=== PATIENT | male | born 1950 | race Caucasian/White ===

== ENCOUNTER 2020-08-21 10:04 | Inpatient (IN) | payer OTHER, SELFPAY ==
[2020-08-21] VITALS (21 sets, daily range): BP systolic 98–135; BP diastolic 46–61; PULSE 60–74; RESP 11–18; TEMP 36.1–36.7; O2SAT 95–99; BMI 43.4
--- NOTE | 2020-08-21 09:59 | PC.NURSE ---
ems called STEMI in field. cath team notified. STEMI cancelled upon arrival.
--- NOTE | 2020-08-21 10:09 | ECG_ITS ---
Measurements Intervals Paden Rate: 70 P: 42 WV: 202 QRS: -8 QRSD: 106 T: 63 QT: 405 QTc: 437 Interpretive Statements SINUS RHYTHM ST ELEVATION IN ANTEROLAT/INF LEADS- PROBABLY EARLY REPOLARIZATION ABNORMALITY BASELINE ARTIFACT- II, III, AVR, AVF, V1, V3-V6 BORDERLINE ECG Electronically Signed On 08-21-2020 13:17:36 CDT by Jeremias Christianson D.O.
--- NOTE | 2020-08-21 10:20 | ED.GENADULT ---
HPI - General Adult General Chief complaint: Altered Mental Status Stated complaint: unresponsive Time Seen by Provider: 08/21/20 10:08 Source: patient, EMS and RN notes reviewed Mode of arrival: EMS Limitations: no limitations History of Present Illness HPI narrative: Patient is 70 years old white male brought to the emergency room by ambulance because of dizziness, almost fainted, while working at his backyard prior to arrival to the emergency room. History of chronic lower back pain, probably worse. Patient received 2 nitroglycerin by his at home prior to arrival, EKG on arrival showed ST elevation consistent with inferior lateral AL. STEMI was called. History of diabetes, hypertension, hyperlipidemia, 7 coronary stents last one was 2 years ago, patient on baby aspirin. Currently patient is asymptomatic except lower back pain. Related Data Home Medications Medication Instructions Recorded Confirmed aspirin 81 mg tablet,delayed 81 mg PO DAILY 12/26/19 06/11/20 release atenolol 50 mg tablet 50 mg PO BID tablet 12/26/19 06/11/20 atorvastatin 40 mg tablet 40 mg PO DAILY 12/26/19 06/11/20 furosemide 40 mg tablet 40 mg PO QAM 12/26/19 06/11/20 gabapentin 400 mg capsule 800 mg PO BID cap 12/26/19 06/11/20 isosorbide mononitrate 30 mg 30 mg PO DAILY 12/26/19 06/11/20 tablet,extended release 24 hr oxycodone-acetaminophen 7.5 mg-325 1 tablet PO Q6H PRN 12/26/19 06/11/20 mg tablet valsartan 80 mg tablet 80 mg PO DAILY 12/26/19 06/11/20 Allergies Allergy/AdvReac Type Severity Reaction Status Date / Time No Known Allergies Allergy Verified 12/26/19 13:59 Review of Systems Review of Systems: Narrative: CONSTITUTIONAL: Denies fever, chills, or sweats. EYES: Denies visual changes, redness, or discharge. ENT: Denies rhinorrhea, congestion, sore throat, or otalgia. CARDIOVASCULAR: Denies chest pain, palpitations, or edema. RESPIRATORY: Denies cough or dyspnea. GASTROINTESTINAL: Denies abdominal pain, nausea, vomiting, or diarrhea. GENITOURINARY: Denies dysuria or hematuria. SKIN: Denies rash or itching. MUSCULOSKELETAL: Denies back pain, joint pain, or myalgia. NEUROLOGIC: Denies headache, numbness, or weakness. PSYCHIATRIC: Denies anxiety or depression. [facility] Past Medical History Medical History Arthritis Back pain Cholecystectomy planned Congestive heart failure Obesity Osteoporosis Surgical History Surgical History H/O angioplasty H/O heart artery stent History of back surgery History of carpal tunnel release Family History Family History Other Arthritis Asthma COPD (chronic obstructive pulmonary disease) Congestive heart failure Diabetes mellitus Family history of arthritis Family history of blood dyscrasia Family history of gout Hypertension Osteoporosis Renal disease Social History Social History Smoking status: Former smoker Tobacco type: cigarettes Smoking end date: 02/20/15 Alcohol intake: current Exam Narrative: Exam Narrative: General appearance: Well-developed, well-nourished Skin: Normal color Head: Normocephalic, nontraumatic Eyes: Clear conjunctiva ENT: Oropharynx normal, ears normal, nose normal Neck: Supple, nontender Chest and respiratory: Airway patent, no respiratory distress, no accessory muscle use Heart: Regular rate/rhythm Abdomen: Soft, nontender, no organomegaly, quiet bowel sounds Vascular: Normal peripheral pulses, normal capillary refill. Musculoskeletal: Normal range of motion, nontender back Neurologic: Alert and oriented ?3, [employer] is normal as tested, no gross motor deficit
[2020-08-21 10:22] LABS: Basophils Percent Auto 0.4 % (0.2-1.2); Eosinophils Absolute Auto 0.3 K/mm3 (0-0.3); Eosinophils Percent Auto 3.1 % (0-4.4); Hematocrit 38.2 % (42.0-52.0); Hemoglobin 12.7 g/dL (14.0-18.0); Immature Granulocyte Absolute 0.14 K/mm3 (0.00-0.031); Immature Granulocyte Percent A 1.5 % (0-0.5); Lymphocytes Percent Auto 23.3 % (18.3-44.2); Mean Corpuscular HGB Conc 33.2 g/dl (32-36); Mean Corpuscular Hemoglobin 32.6 pg (26-34); Mean Corpuscular Volume 98.2 fl (80-100); Mean Platelet Volume 11.3 fl (7.4-10.4); Monocytes Absolute Auto 0.9 K/mm3 (0.1-0.6); Monocytes Percent Auto 9.2 % (2.6-8.5); Neutrophils Absolute Auto 5.9 K/mm3 (1.3-6.7); Neutrophils Percent Auto 62.5 % (45.5-73.1); Platelet Count Result 177 k/mm3 (150-375); Red Blood Count 3.89 M/mm3 (4.6-6.20); Red Cell Distribution Width 12.9 % (11.5-14.5); White Blood Count 9.5 K/mm3 (4.5-10.0)
--- NOTE | 2020-08-21 10:26 | PM.IMHP ---
H&P: HPI History of Present Illness Date/Time: 08/21/20 10:26 Chief Complaint: flushing, near syncopal event Narrative: this is a 70-year-old man unknown to was here at [facility] was brought in by the EMS with STEMI having been declared in the field. The ECG from the field was not felt to be diagnostic of acute UT however the ECG in the emergency room here was felt to be diagnostic by our ED physician. I came to the emergency room to see the patient briefly. He is not reporting any chest pain. This gentleman apparently has a history of significant coronary disease with previous coronary interventions the details of which are unknown to us as he gets his care at another hospital. Apparently this morning he was working in his home in his bathroom and he suddenly felt warm flushed and lightheaded and presyncopal. He called an ambulance and was brought here for evaluation. He is not reporting any chest pain. His ECG in my opinion shows a sinus mechanism with some nonspecific lateral ST elevation but it does not appear to be highly suggestive of an acute current of injury. Patient's past medical history is primarily remarkable for hypertension, control diabetes he states diabetic nephropathy and treated dyslipidemia. No laboratory data is available to review. He is being brought to the cardiac catheterization lab for emergency angiogram as STEMI has been declared. Review of Systems Review of Systems: ROS unobtainable: Yes unobtainable due to medical condition PMFSH Past Medical History Medical History Arthritis Back pain Cholecystectomy planned Congestive heart failure Obesity Osteoporosis Surgical History Surgical History H/O angioplasty H/O heart artery stent History of back surgery History of carpal tunnel release Family History Family History Other Arthritis Asthma COPD (chronic obstructive pulmonary disease) Congestive heart failure Diabetes mellitus Family history of arthritis Family history of blood dyscrasia Family history of gout Hypertension Osteoporosis Renal disease Social History Social History Smoking status: Former smoker Tobacco type: cigarettes Smoking end date: 02/20/15 Alcohol intake: current Meds Home Medications and Allergies Home Medications Medication Instructions Recorded Confirmed Type aspirin 81 mg tablet,delayed 81 mg PO DAILY 12/26/19 06/11/20 History release atenolol 50 mg tablet 50 mg PO BID tablet 12/26/19 06/11/20 History atorvastatin 40 mg tablet 40 mg PO DAILY 12/26/19 06/11/20 History furosemide 40 mg tablet 40 mg PO QAM 12/26/19 06/11/20 History gabapentin 400 mg capsule 800 mg PO BID cap 12/26/19 06/11/20 History isosorbide mononitrate 30 mg 30 mg PO DAILY 12/26/19 06/11/20 History tablet,extended release 24 hr oxycodone-acetaminophen 7.5 mg-325 1 tablet PO Q6H PRN 12/26/19 06/11/20 History mg tablet valsartan 80 mg tablet 80 mg PO DAILY 12/26/19 06/11/20 History insulin aspart U-100 100 unit/mL 20 unit SUBCUT TID 90 Days #54 ml 06/19/20 Rx (3 mL) subcutaneous pen insulin glargine 100 unit/mL (3 40 unit SUBCUT BID 90 Days #75 ml 06/29/20 Rx mL) subcutaneous pen Allergies Allergy/AdvReac Type Severity Reaction Status Date / Time No Known Allergies Allergy Verified 12/26/19 13:59 Vital Signs Vital Signs - 24 hr 08/21/20 10:00 08/21/20 10:08 08/21/20 10:15 Temperature 36.6 C Pulse Rate 67 67 70 Respiratory Rate 18 12 13 Blood Pressure 135/59 L Pulse Oximetry 98 99 95 Exam Const: Other: Relatively calm appearing morbidly obese man no apparent distress currently HENMT: Mouth: Yes dry mucous membranes Eyes: Sclera: sclerae normal Pupils: Equal, round and reactive pupils present Neck:
[2020-08-21 10:31] LABS: Prothrombin Time 13.4 Seconds (11.1-14.7)
[2020-08-21 10:34] LABS: Alanine Aminotransferase 47 U/L (4-50); Albumin Level 3.3 g/dL (3.5-5.1); Alkaline Phosphatase 65 U/L (38-126); Anion Gap 9 mmol/L (8-16); Aspartate Amino Transferase 35 U/L (17-59); Bilirubin,Total 0.5 mg/dL (0.2-1.3); Blood Urea Nitrogen 53 mg/dL (9-20); Calcium 8.1 mg/dL (8.4-10.2); Carbon Dioxide 23 mmol/L (22-30); Chloride 106 mmol/L (98-107); Cholesterol 95 mg/dL (0-200); Estimated CRCL calculation 43 ml/min; Estimated Glomerular Filt Rate 35; Glucose 178 mg/dL (75-110); HDL Direct 33 mg/dL; Potassium 4.8 mmol/L (3.4-5.0); Sodium 138 mmol/L (137-145); Triglycerides 99 mg/dL (<150)
[2020-08-21 10:45] LABS: LDL Cholesterol Direct 37 mg/dL
[2020-08-21 10:48] LABS: Troponin I 0.016 ng/mL (0.000-0.034)
--- NOTE | 2020-08-21 11:04 | WPDCARDPROC ---
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 While he was at home apparently he was working in his bathroom and suddenly became flushed diaphoretic and either had a brief syncopal episode or near syncopal episode. He is not having any chest pain. STEMI was declared in the field although I did not agree that the ECG in the field was indicative of acute DE. Upon arrival here STEMI was declared by the ED physician. My personal inspection of the ECG does not strictly agree with this opinion. Currently the patient is asymptomatic. He normally receives his medical care at [facility] in [place]. He has never been here at [facility] previously. Procedure Procedure performed:: Emergency coronary angiography left ventriculography Sedation/Medication given:: no sedation administered case start time 10:36 a.m. case end time 10:56 a.m. Access site:: right femoral artery Estimated blood loss:: 15-20 cc Procedure note:: patient was brought to the cardiac catheterization lab in the emergency setting described above. The femoral triangle was prepped draped in the usual fashion. Anesthesia was provided with 1% lidocaine infiltrated locally. Using the modified Seldinger technique I punctured the right femoral artery and placed a 5 Greek vascular sheath. After this I engaged and injected the left coronary artery using a standard 5 Greek FL4 catheter. After this I engaged the were and injected the right coronary artery using a standard 5 Greek JR4 catheter. The cineangiograms were then reviewed. A 5 Greek angled pigtail catheter was used to measure left-sided hemodynamics and to injected LV g in the 30 degree IQBAL projection. After this the case was terminated angiogram was done of the femoral artery through the sheath and it was determined the sheath will be removed with direct manual compression. Patient was taken to the ICU room 6. For post cath recovery. Plans will be made for transfer to a CABG capable hospital. Findings:: Hemodynamics: Central aortic pressure was 114 over 48. Left ventricle 114/5 end-diastolic pressure 18 . There is no significant transvalvular upon pullback across the aortic valve. Left ventricle: the LV is normal in size the inferior wall is [id number] hypodynamic the anterior wall contracts well. The global ejection fraction I would visually estimated to be 50%. The left main coronary artery is medium in caliber. There is distal stenosis in the left main that is somewhat eccentric. In the MONTSERRATIAN cranial and AP cranial view appears to be about 80% distal left main stenosis. Left anterior descending is a medium caliber artery with stents in proximal 1/3 of the artery. The distal left main disease described above extends into the ostium of the LAD the where there is about 80-90% ostial LAD stenosis. There is EDER 3 flow in the LAD. A diagonal branch of the LAD has mid 80-90% stenosis. The circumflex is a medium caliber artery giving rise to the marginal branches the trunk of the circumflex has at least 2 previously deployed stents which appear to be patent distally to this the circumflex marginal branches are very small in caliber the right coronary artery is a large caliber artery that is dominant to the posterior circulation there are least 2 previous stents in the right coronary proximally and in the midportion. Between these 2 stents there is a 99% stenosis. There was EDER 3 flow in the vessel. The RPDA and RPL branches appear to be relatively good-sized.
--- NOTE | 2020-08-21 11:21 | WPDCNINT ---
Assessment and Plan Assessment and plan (1) CAD (coronary artery disease), [place] coronary artery: Code(s): I25.10 - Atherosclerotic heart disease of [place] coronary artery without angina pectoris Status: Acute Assessment and Plan: Patient was a code STEMI and was taken emergently to cardiac catheterization lab for cardiac catheterization which showed 1. Severe coronary artery disease with significant distal left main stenosis extending into the ostium of the LAD with there is also high-grade stenosis. 2. 80-90% stenosis in the major diagonal branch of the LAD 3. patent stents in proximal, mid LAD as well as in the proximal mid circumflex. 4. Distal circumflex OM branches are patent but very small and diffusely attenuated 5. large dominant right coronary artery with 99% mid stenosis between 2 previously deployed stents 6. mild inferior hypokinesia but overall fairly good left ventricular systolic function as described above patient is being transferred to [facility] for CABG evaluation continue aspirin beta-savannah statin (2) Pre-syncope: Code(s): R55 - Syncope and collapse Status: Acute Assessment and Plan: Unknown etiology at this time although postural hypotension appears to be the most likely etiology considering history of diabetes and of similar but milder events in the past as provided by patient. patient was also Lasix which could lead to intravascular volume depletion. It appears the blood sugar was checked and was adequate at this time patient is add strict bed rest due to presence of sheath. will check orthostatics once sheath is removed ICU telemetry monitoring. currently in normal sinus rhythm serial troponin check TSH hold Lasix since patient is transferring to outside hospital for CABG will hold on doing further aggressive workup like echocardiogram as likely be done at the other hospital in preparation of CABG (3) Diabetes mellitus: Code(s): E11.9 - Type 2 diabetes mellitus without complications Status: Acute Assessment and Plan: continue Lantus, with meal insulin and sliding scale (4) CKD (chronic kidney disease): Code(s): N18.9 - Chronic kidney disease, unspecified Status: Acute Assessment and Plan: baseline creatinine unknown. since patient has received IV contrast, will continue IV fluids at this time. hold ARB monitor urine output and electrolytes (5) Hypertension: Code(s): I10 - Essential (primary) hypertension Status: Acute Assessment and Plan: monitor in ICU and treat as needed continue atenolol (6) Hyperlipidemia: Code(s): E78.5 - Hyperlipidemia, unspecified Status: Acute Assessment and Plan: Lipitor Additional Plan DVT prophylaxis - Lovenox Full code Assistant District Attorney Consult Note Consult date: 08/21/20 Time Seen: 11:30 HPI: Azael Langley is a 70 year old male with past medical history of coronary artery disease status post PCI, diabetes mellitus, hypertension and hyperlipidemia who was brought to ER with Code STEMI. patient apparently was fine this morning until he was cleaning his bathroom and suddenly became dizzy, lightheaded and diaphoretic. He went and sat in his chair. called EMS. he is not sure whether he lost his consciousness but he absolutely denies falling or hitting or his head and states that he was in a chair when EMS arrived. he was told his blood sugar was in 100s initially when checked by his and 200s when checked by EMS. he never had any chest pain shortness of breath or palpitations. no weakness in any particular extremities. Patient had EKG done in the feels which suggested acute WV.Code STEMI was activated and cardiology was consulted. although the wood model builder felt that EKG did not suggests ST segment elevation WV, patient was emergently taken to cardiac component lab tech for angiogram. Cardiac Cath Showed 1.
--- NOTE | 2020-08-21 11:27 | PC.NURSE ---
This patient, Azael Langley, was received from Mail Carriers Supervisor on 08/21/20 at 1118 into ICU-6. Patient/family oriented to unit policies and routines
[2020-08-21] MEDS: SODIUM CHLORIDE 0.9% IV 1,000 ML 125 ML IV CONT (12:30)
[2020-08-21 13:26] LABS: Troponin I 0.016 ng/mL (0.000-0.034)
[2020-08-21] MEDS: NEOMYCIN/POLYMYXIN/BACITRACIN OINTMENT PACKET 1 PACKET (13:40)
[2020-08-21 13:46] LABS: Partial Thromboplastin Time < 20.0 SECONDS (22.3-36.8)
--- NOTE | 2020-08-21 14:11 | PC.NURSE ---
Cardiopulmonary Rehab Services flyer was given to patient in cardiac admissions folder.
[2020-08-21 14:32] LABS: Glucose Point of Care 172 mg/dl (65-105)
[2020-08-21 16:39] LABS: Troponin I 0.014 ng/mL (0.000-0.034)
[2020-08-21 18:05] LABS: Glucose Point of Care 226 mg/dl (65-105)
[2020-08-21] MEDS: INSULIN ASPART (*BKC) 100 UNITS/ML SUB-Q (18:08)
[2020-08-21] MEDS: INSULIN ASPART (*BKC) 100 UNITS/ML 20 UNITS SUB-Q (18:11)
[2020-08-21] MEDS: GABAPENTIN 400 MG CAPSULE 800 MG PO (20:32)
[2020-08-21] MEDS: VALSARTAN 80 MG TABLET PO (20:33)
[2020-08-21] MEDS: INSULIN GLARGINE (*BKC) 100 UNITS/ML 40 UNITS SUB-Q (20:34)
[2020-08-21 20:40] LABS: Glucose Point of Care 229 mg/dl (65-105)
[2020-08-22] VITALS (10 sets, daily range): BP systolic 102–129; BP diastolic 49–63; PULSE 57–69; RESP 12–18; TEMP 35.7–36.6; O2SAT 94–98
[2020-08-22] MEDS: oxyCODONE HCL (*CRX) 2.5 MG TAB IR PO (02:10)
[2020-08-22] MEDS: oxyCODONE/ACETAMINOPHEN (*CRX) 5-325 MG TABLET 1 TABLET PO (02:10)
[2020-08-22 05:21] LABS: Hematocrit 38.1 % (42.0-52.0); Hemoglobin 12.5 g/dL (14.0-18.0); Mean Corpuscular HGB Conc 32.8 g/dl (32-36); Mean Corpuscular Hemoglobin 32.6 pg (26-34); Mean Corpuscular Volume 99.2 fl (80-100); Mean Platelet Volume 11.5 fl (7.4-10.4); Platelet Count Result 140 k/mm3 (150-375); Red Blood Count 3.84 M/mm3 (4.6-6.20); Red Cell Distribution Width 12.8 % (11.5-14.5); White Blood Count 10.3 K/mm3 (4.5-10.0)
[2020-08-22 05:55] LABS: Alanine Aminotransferase 42 U/L (4-50); Albumin Level 3.1 g/dL (3.5-5.1); Alkaline Phosphatase 66 U/L (38-126); Anion Gap 7 mmol/L (8-16); Aspartate Amino Transferase 30 U/L (17-59); Bilirubin,Total 0.4 mg/dL (0.2-1.3); Blood Urea Nitrogen 47 mg/dL (9-20); Calcium 8.2 mg/dL (8.4-10.2); Carbon Dioxide 25 mmol/L (22-30); Chloride 108 mmol/L (98-107); Estimated CRCL calculation 52 ml/min; Estimated Glomerular Filt Rate 46; Glucose 108 mg/dL (75-110); Potassium 4.3 mmol/L (3.4-5.0); Sodium 140 mmol/L (137-145)
[2020-08-22] MEDS: ENOXAPARIN 30 MG/0.3 ML SYRINGE SUB-Q (08:31)
[2020-08-22] MEDS: ASPIRIN 81 MG ENTERIC TABLET PO (08:31)
[2020-08-22] MEDS: ATORVASTATIN 40 MG TABLET PO (08:32)
[2020-08-22] MEDS: ISOSORBIDE MONONITRATE 30 MG TAB.ER.24H PO (08:32)
[2020-08-22] MEDS: atenoloL 50 MG TABLET PO (08:32)
[2020-08-22] MEDS: GABAPENTIN 400 MG CAPSULE 800 MG PO (08:33)
--- NOTE | 2020-08-22 08:51 | PM.PNCARD ---
Progress Note: A&P Additional Plan this is a 70-year-old man with: Multivessel coronary artery disease with previous multivessel stenting elsewhere as detailed above. He now has significant stenosis in the distal left main, ostial LAD as well as in the mid RCA. I did recommend CABG in this setting. He is awaiting a bed availability at [facility] for transfer and cardiothoracic surgery consultation. John Montano MD [facility] Subjective Date/time seen: date of service:08/22/20 08:51 Interval history: Follow-up visit in this 70-year-old man with: Multivessel coronary artery disease presenting yesterday in distress after a vertiginous episode at home who was declared a STEMI in the field and by the ED physician. Emergency catheterization showed no evidence of STEMI but he does have evidence of significant left main coronary stenosis as well as high-grade mid right coronary stenosis between 2 previously deployed stents. The patient has previous stents in the proximal/mid LAD, circumflex and RCA. My recommendation with this anatomy was for coronary bypass surgery. His cardiovascular care has previously been delivered at [facility]. They were refusing to accept the patient in transfer. For this reason he has been accepted at [facility] although they do not have a bed so he is still here at [facility] today. Patient is asymptomatic feels well and has no complaints. Exam Const: General: comfortable and no acute distress HENMT: Mouth: Yes moist mucous membranes Eyes: Sclera: sclerae normal Pupils: Equal, round and reactive pupils present Neck: Neck: supple and no JVD Other: No carotid bruits are audible Resp: Effort & Inspection: normal respiratory effort Auscultation: clear to auscultation bilaterally Cardio: Rate: regular rate Rhythm: regular rhythm Other: PMI difficult to palpate GI: GI Palp: Yes Soft to palpation Auscultation: normal bowel sounds Skin: General skin exam: normal color Neuro: Cognition (Neuro): normal cognition Extrem: Other: changes of chronic venous stasis noted, no significant edema Objective Data Vital Signs Vital Signs: Vital Signs - 24 hr 08/21/20 10:00 08/21/20 10:08 08/21/20 10:15 Temperature 36.6 C Pulse Rate 67 67 70 Pulse Rate [Bilateral Pedal (Dorsalis Pedis)] Respiratory Rate 18 12 13 Blood Pressure 135/59 L Pulse Oximetry 98 99 95 08/21/20 10:20 08/21/20 11:26 08/21/20 12:00 Temperature 36.1 C L Pulse Rate 67 67 68 Pulse Rate [Bilateral Pedal (Dorsalis Pedis)] Respiratory Rate 16 12 Blood Pressure 126/61 98/54 L Pulse Oximetry 97 98 98 08/21/20 13:20 08/21/20 13:30 08/21/20 13:45 Temperature 36.3 C L 36.2 C L 36.2 C L Pulse Rate 64 64 64 Pulse Rate [Bilateral Pedal (Dorsalis Pedis)] 64 Respiratory Rate 11 L 13 12 Blood Pressure 110/61 122/59 L 113/58 L Pulse Oximetry 98 99 97 08/21/20 13:59 08/21/20 14:00 08/21/20 14:29 Temperature 36.2 C L 36.1 C L 36.2 C L Pulse Rate 63 63 63 Pulse Rate [Bilateral Pedal (Dorsalis Pedis)] 64 64 Respiratory Rate 11 L 11 L 11 L Blood Pressure 118/59 L 118/59 L 113/55 L Pulse Oximetry 98 98 96 08/21/20 15:00 08/21/20 15:29 08/21/20 16:00 Temperature 36.2 C L 36.2 C L 36.7 C Pulse Rate 63 63 64 Pulse Rate [Bilateral Pedal (Dorsalis Pedis)] Respiratory Rate 12 15 11 L Blood Pressure 113/61 108/61 120/60 Pulse Oximetry 97 96 96 08/21/20 16:29 08/21/20 17:29 08/21/20 18:00 Temperature 36.1 C L 36.6 C 36.6 C Pulse Rate 61 60 61 Pulse Rate [Bilateral Pedal (Dorsalis Pedis)] 60 Respiratory Rate 12 12 15 Blood Pressure 119/56 L 101/49 L 108/59 L Pulse Oximetry 96 96 97 08/21/20 18:29 08/21/20 20:00 08/21/20 22:00 Temperature 36.7 C 36.4 C Pulse Rate 70 67 62 Pulse Rate [Bilateral Pedal (Dorsalis Pedis)] 60 Respiratory Rate 14 13 16 Blood Pressure 132/51 L 111/46 L 109/48 L Pulse Oximetry 96 96 95 08/22/20 00:00 08/22/20 02:00 08/22/20 04:00 Temperature 36.5 C
[2020-08-22 08:56] LABS: Glucose Point of Care 127 mg/dl (65-105)
[2020-08-22] MEDS: INSULIN GLARGINE (*BKC) 100 UNITS/ML 40 UNITS SUB-Q (09:02)
[2020-08-22] MEDS: INSULIN ASPART (*BKC) 100 UNITS/ML 20 UNITS SUB-Q (09:03)
--- NOTE | 2020-08-22 09:06 | WPDINTPN ---
Progress Note: A&P Assessment and Plan (1) CAD (coronary artery disease), [place] coronary artery: Code(s): I25.10 - Atherosclerotic heart disease of [place] coronary artery without angina pectoris Status: Acute Assessment and Plan: Patient was a code STEMI and was taken emergently to cardiac catheterization lab for cardiac catheterization which showed 1. Severe coronary artery disease with significant distal left main stenosis extending into the ostium of the LAD with there is also high-grade stenosis. 2. 80-90% stenosis in the major diagonal branch of the LAD 3. patent stents in proximal, mid LAD as well as in the proximal mid circumflex. 4. Distal circumflex OM branches are patent but very small and diffusely attenuated 5. large dominant right coronary artery with 99% mid stenosis between 2 previously deployed stents 6. mild inferior hypokinesia but overall fairly good left ventricular systolic function as described above currently chest pain-free and asymptomatic patient is awaiting transfer to outside hospital for CABG evaluation continue aspirin beta-savannah statin (2) Pre-syncope: Code(s): R55 - Syncope and collapse Status: Acute Assessment and Plan: Unknown etiology at this time although postural hypotension appears to be the most likely etiology considering history of diabetes and of similar but milder events in the past as provided by patient. patient was also Lasix which could lead to intravascular volume depletion. It appears the blood sugar was checked and was adequate check orthostatic vitals continue telemetry monitoring. currently in normal sinus rhythm serial troponin negative normal TSH hold Lasix since patient is transferring to outside hospital for CABG will hold on doing further aggressive workup like echocardiogram as likely be done at the other hospital in preparation of CABG (3) Diabetes mellitus: Code(s): E11.9 - Type 2 diabetes mellitus without complications Status: Acute Assessment and Plan: continue Lantus, with meal insulin and sliding scale (4) CKD (chronic kidney disease): Code(s): N18.9 - Chronic kidney disease, unspecified Status: Acute Assessment and Plan: baseline creatinine unknown. since patient has received IV contrast, patient was given IV fluid creatinine has improved today monitor urine output and electrolytes (5) Hypertension: Code(s): I10 - Essential (primary) hypertension Status: Acute Assessment and Plan: continue beta-savannah and ARB (6) Hyperlipidemia: Code(s): E78.5 - Hyperlipidemia, unspecified Status: Acute Assessment and Plan: Lipitor Additional Plan DVT prophylaxis - Lovenox Full code transfer out of ICU today Subjective Date/time seen: 08/22/20 Overnight events reviewed. Afebrile No new complaints this morning. States he slept okay although he does not like the bed. He denies any pain shortness of breath or cough. he told me that he was told by line nurse that he may have sleep apnea as he was dropping his sats while sleeping which recovered when he woke up. Patient denies fever, chest pain, shortness of breath, cough, nausea vomiting, abdominal pain, diarrhea, headache or constipation. all other systems were reviewed and were negative Review of Systems Review of Systems: All systems reviewed & are unremarkable except as noted in HPI and below ( HPI) Exam Narrative: Exam Narrative: General: Pt is alert awake and in NAD Lungs/Chest: Trachea central Clear BS B/L, No crackles or wheezing. Cardiac: RRR. Normal S1 S2. No murmurs Circulation: Pedal pulses are intact and symmetrical. No swelling or hematoma in right groin Abdomen: Normal bowel sounds.. Soft. NT. ND. Extremities: No clubbing, cyanosis. mild edema edema. Warm : Funes in place Neurologic: Follows commands. Moves all 4 extremities PERRL Skin:
[2020-08-22] MEDS: FUROSEMIDE 40 MG TABLET PO (09:29)
--- NOTE | 2020-08-22 11:17 | PC.NURSE ---
This patient, Azael Langley, was transferred to [[id number] ] on 08/22/20 at 1105. Personal belongings sent with patient. Report given to [ Danielle NICOLE ]. Appropriate documentation sent with patient.
--- NOTE | 2020-08-22 11:32 | PC.NURSE ---
This patient, Azael Langley, was received from ICU on 08/22/20 at 1132. Patient/family oriented to unit policies and routines
[2020-08-22 13:14] LABS: Glucose Point of Care 104 mg/dl (65-105)
[2020-08-24 10:43] LABS: Glucose Point of Care 178 mg/dl (65-105)
--- NOTE | 2020-09-29 12:11 | PM.TDS ---
Transfer Discharge Sum: Prov Provider Date of admission: 08/21/20 10:10 Primary care physician: Geoff Marquez, Admitting clinician: John Montano MD DS: Admitting Diagnosis Admitting Diagnosis Acute coronary syndrome DS: Discharge Diagnosis Discharge Diagnosis (1) CAD (coronary artery disease), [place] coronary artery: Code(s): I25.10 - Atherosclerotic heart disease of [place] coronary artery without angina pectoris Status: Acute Transfer Discharge Sum: Med Medications Active and Home Medications: Home Medications aspirin 81 mg tablet,delayed release 81 mg PO DAILY 12/26/19 [History Confirmed 08/21/20] atenolol 50 mg tablet 50 mg PO BID tablet 12/26/19 [History Confirmed 08/21/20] atorvastatin 40 mg tablet 40 mg PO DAILY 12/26/19 [History Confirmed 08/21/20] furosemide 40 mg tablet 40 mg PO QAM 12/26/19 [History Confirmed 08/21/20] gabapentin 400 mg capsule 800 mg PO Q12H cap 12/26/19 [History Confirmed 08/21/20] isosorbide mononitrate 30 mg tablet,extended release 24 hr 30 mg PO DAILY 12/26/19 [History Confirmed 08/21/20] oxycodone-acetaminophen 7.5 mg-325 mg tablet 1 tablet PO Q6H PRN 12/26/19 [History Confirmed 08/21/20] valsartan 80 mg tablet 80 mg PO HS 12/26/19 [History Confirmed 08/21/20] insulin aspart U-100 100 unit/mL (3 mL) subcutaneous pen 20 unit SUBCUT TID 90 Days #54 ml 06/19/20 [Rx Confirmed 08/21/20] Transfer Discharge Sum: Hosp Hospital Course Hospital course: Azael Langley is a 70 year old male admitted to the hospital with accelerating ischemic chest pain. He has a known history of coronary artery disease and previous PCI. He was brought to the cardiac catheterization lab for further evaluation of this and found to have high-grade stenosis of the distal aspect of his left main coronary artery. He was recommended to undergo surgical revascularization because of this. An intra-aortic balloon pump was placed to cardiac keep him stable and he was systemically anticoagulated and transferred from the laboratory analyst to the ICU. The cardiothoracic surgeon at [facility] accepted him in transfer and he was transferred there for surgical revascularization. Time Spent with Patient Time attestation: Total time spent providing and/or coordinating transfer services: Exam Const: General: comfortable and no acute distress Other: Obese white male Eyes: Sclera: sclerae normal Pupils: Equal, round and reactive pupils present Neck: Neck: supple Carotids: bruit Other: Difficult to assess JVD Resp: Effort & Inspection: normal respiratory effort Auscultation: clear to auscultation bilaterally Cardio: Rate: regular rate Rhythm: regular rhythm Other: PMI not palpable no murmur GI: GI Palp: Yes Soft to palpation Auscultation: normal bowel sounds Skin: General skin exam: normal color Neuro: Cognition (Neuro): normal cognition Extrem: General: normal to inspection DS: Data Data Completed and Pending Completed studies during hospitalization: Left heart catheterization
== END 2020-08-22 13:09 | disposition short-term general hospital (02) | DRG 287 ==
LOC: ANHED 10:17 → ANHICU 10:24 → ANH2MED 08-22 11:26
PROVIDERS: Internal Medicine; Admitting Provider Specialist; Emergency Provider Emergency Medicine; PCP Internal Medicine; Visit Provider Specialist
PROC: 4A023N7 Measurement of Cardiac Sampling and Pressure, Left Heart, Percutaneous Approach (ICD-10-PCS; CPT 93452; principal; 2020-08-21 10:30)
DX: I25.10 Atherosclerotic heart disease of native coronary artery without angina pectoris (principal); Z68.41 Body mass index [BMI] 40.0-44.9, adult; E66.01 Morbid (severe) obesity due to excess calories; E11.9 Type 2 diabetes mellitus without complications; I12.9 Hypertensive chronic kidney disease with stage 1 through stage 4 chronic kidney disease, or unspecified chronic kidney disease; E11.22 Type 2 diabetes mellitus with diabetic chronic kidney disease; N18.9 Chronic kidney disease, unspecified; E78.5 Hyperlipidemia, unspecified; R55 Syncope and collapse
CPT/HCPCS: 36415; 80053; 80061; 82948; 83036; 83735; 84443; 84484; 85025; 85027; 85610; 85730; 86850; 86900; 86901; 93005; 93458; 99291; A9270; C1887; C1894; J1644; J1650; J1815; J7030; J7040

== ENCOUNTER 2023-02-16 16:05 | Emergency (ER) | payer OTHER, SELFPAY ==
[2023-02-16 16:07] VITALS: BP 128/66; PULSE 80; RESP 18; TEMP 36.4; O2SAT 96
== END 2023-02-16 16:07 | disposition left against medical advice (07) ==
PROVIDERS: PCP Family Medicine
DX: R51.9 Headache, unspecified (principal)
CPT/HCPCS: 99199